=== PATIENT | male | born 1990 | race African-American/Black ===

== ENCOUNTER 2017-10-31 15:54 | Emergency (ER) | payer BC, OTHER ==
[~2017-10-31] VITALS: Ht 172.7 cm; Wt 78.5 kg
[2017-10-31 16:10] VITALS: BP 117/81
[2017-10-31] MEDS ORDERED: LIDOCAINE 1% (LOCAL ANESTH.) PF 5ml SDV IJ ONE (16:45)
[2017-10-31] MEDS ORDERED: LIDOCAINE 1% (LOCAL ANESTH.) PF 5ml SDV ONE (16:45)
[2017-10-31] MEDS ORDERED: TETANUS-DIPTH-ACEL PERTUSSIS 0.5ML SYRG IM ONE (17:00)
== END 2017-10-31 17:32 | disposition home or self-care (01) ==
LOC: ER 16:03
DX: S71.111A Laceration without foreign body, right thigh, initial encounter (principal); W26.0XXA Contact with knife, initial encounter; Y93.89 Activity, other specified; Y99.8 Other external cause status; Y92.89 Other specified places as the place of occurrence of the external cause
CPT/HCPCS: 12004; 90471; 90715

== ENCOUNTER 2018-12-10 11:54 | Emergency (ER) | payer OTHER ==
[~2018-12-10] VITALS: Ht 170.2 cm; Wt 83.9 kg
[2018-12-10 12:11] VITALS: BP 118/70
== END 2018-12-10 14:12 | disposition home or self-care (01) ==
LOC: ER 11:54
DX: S81.011A Laceration without foreign body, right knee, initial encounter (principal); W22.8XXA Striking against or struck by other objects, initial encounter; Y93.89 Activity, other specified; Y99.0 Civilian activity done for income or pay; Y92.89 Other specified places as the place of occurrence of the external cause
CPT/HCPCS: 12002